=== PATIENT | female | born 1945 | race Caucasian/White ===

== ENCOUNTER → 2016-07-22 08:54 | Outpatient (CLI) | payer MEDICARE, BC | END | disposition home or self-care (01) | LOC: D.US 08:54 → D.RAD 10:00 | DX: K21.9 Gastro-esophageal reflux disease without esophagitis (principal); R07.89 Other chest pain ==

== ENCOUNTER 2017-01-27 06:26 | Day surgery (SDC) | payer MEDICARE, BC ==
[2017-01-27 07:27] LABS: HEMATOCRIT 37.7 % (36.0-48.0); HEMOGLOBIN 12.6 g/dL (12-16); MCH 30.8 pg (26.0-34.0); MCHC 33.4 g/dL (31.0-37.0); MCV 92.2 fL (80.0-100.0); MEAN PLATELET VOLUME 10.1 fL (7.4-10.4); RBC 4.09 10x6/uL (4.00-5.40); WBC 6.3 10x3/uL (4.8-10.8)
[2017-01-27 07:35] LABS: INR 0.96 (0.85-1.17); PROTIME 12.6 SECONDS (11.6-15.0)
[2017-01-27] MEDS ORDERED: OMEPRAZOLE40 MG PO (08:00)
[2017-01-27] MEDS ORDERED: ZANTAC300 MG PO (08:01)
[2017-01-27] MEDS ORDERED: MUCINEX600 MG PO (08:01)
[2017-01-27] MEDS ORDERED: SINGULAIR10 MG PO (08:01)
[2017-01-27] MEDS ORDERED: PAXIL40 MG PO (08:02)
[2017-01-27] MEDS ORDERED: BENADRYL25 MG PO (08:02)
[2017-01-27] MEDS ORDERED: ACETAMINOPHEN500 M1 PO (08:03)
[2017-01-27] MEDS ORDERED: MIRALAX17 GM PO (08:08)
[2017-01-27 08:13] VITALS: BP 129/75; BMI 28.2
--- NOTE | 2017-01-27 10:50 | NUR ---
COFFEE PROVIDED PER REQUEST.
--- NOTE | 2017-01-27 11:20 | NUR ---
PIV DC W/CATHETER TIP INTACT DC TEACHING COMPLETE PT VU FU AND NEW PT APPT MADE PER NANCE REQUEST.
--- NOTE | 2017-01-27 11:55 | NUR ---
PT DC HOME W\ DRIVING VIA WC BY VOLUNTEER.
--- NOTE | 2017-02-02 10:26 | OP ---
PATIENT NAME: MIRYAM MORALES MEDICAL RECORD: [id number] :49 LOCATION:D.[facility] ADMISSION DATE: SURGEON: RAUL NANCE MD DATE OF OPERATION: 01/27/2017 REFERRING PHYSICIAN: Dr. Colton Jaramillo of [place]. PRIMARY CARE PHYSICIAN: Dr. Colton Jaramillo of [place]. PREOPERATIVE DIAGNOSES: Atypical chest pain. The patient with known hiatus hernia and gastroesophageal reflux disease and upper abdominal pain. Also history of NSAID and aspirin abuse or use. POSTOPERATIVE DIAGNOSIS: Atypical chest pain. The patient with known hiatus hernia and gastroesophageal reflux disease and upper abdominal pain. Also history of NSAID and aspirin abuse or use. Atrophic gastritis, possibly also secondary to NSAIDs and aspirin and noncompliance with medical regime. OPERATION PERFORMED: Esophagogastroduodenoscopy with multiple gastric mucosal biopsies. SURGEON: Raul Nance MD ANESTHESIA: CIRCUS HAND, TIVA. PREOPERATIVE NOTE: Ms. Morales is a 71-year-old anxious white female patient, who has symptoms of atypical chest pain over the last 3 months and has a known hiatal hernia with reflux seen on upper GI. She was in my office last week complaining of terrible pain and wanting to have surgery for her hiatal hernia, however, at that time she was taking ibuprofen or other NSAIDs and aspirin relatively frequently and not taking her prescribed acid reducing medications in an optimal manner. At that time, in the office, I advised her to totally abstain from aspirin and NSAIDs and take only Tylenol if necessary for pain and to take Prilosec 40 mg twice a day morning and evening and Zantac 300 mg once a day at bedtime. Today, she presents for a scheduled upper endoscopy. She reports that her symptoms may be somewhat improved since abstaining from NSAIDs. Under TIVA administered per CIRCUS HAND and after the pharynx was sprayed with benzocaine, the Olympus gastroscope was introduced through the pharynx. The esophagus was normal in appearance until about 30 cm from the incisors. There was some tortuosity there of the distal esophagus and there was a hiatal hernia 8-10 cm in length of a sliding type. I saw no evidence of esophagitis. There was no esophageal stricture or mucosal ring, no esophageal ulcerations, etc. The scope was retroflexed and the hiatus hernia examined and photographed from below. Within the body and antrum of the stomach, there was erythema and erythematous streaking and erythema of the prepyloric mucosa consistent with atrophic gastritis and inflammation secondary to NSAIDs. The scope was passed through a somewhat spastic pylorus into the first, second, and third portions of the duodenum, which were normal in appearance. Scope was pulled back into the stomach and multiple biopsies of the gastric antral mucosa were obtained for CLOtest as well as histology. Insufflated air was suctioned away and the scope withdrawn. The patient will be discharged to home today. We will see if we can arrange an outpatient appointment in [place] to see Dr. Mills for cardiology evaluation for OPERATIVE REPORT [id number] MIRYAM MORALES her atypical chest pain, which certainly may be due to her GERD, but certainly could have other origins. She is to continue on Prilosec 40 mg b.i.d. and Zantac 300 mg p.o. at bedtime. She will continue to totally abstain from aspirin and NSAIDs and she is instructed to elevate the head of her bed 4 inches on wood blocks or bricks and to follow usual antireflux dietary precautions such as a low-fat diet and avoiding caffeine, coffee, chocolate, peppermint, and eating within a couple of hours of bedtime. I will plan to see her back in my office in 2 weeks. I hope to avoid surgical treatment for this patient, who is as I have said quite anxious. Hopefully, optimal medical management will control her symptoms. If not, at least physically she is a candidate for a laparoscopic Helio fundoplication. TRANSINT:[id number] Voice Confirmation ID: [id number] DOCUMENT ID: [id number] RAUL NANCE MD at 1026 CC: COLTON JARAMILLO [id number] DICTATION DATE: 01/27/17 1040 FINANCIAL SECRETARY: 01/27/17 1349 [facility] 01/27/17 [place] [id number] [place] [id number]
== END 2017-01-27 11:55 | disposition home or self-care (01) ==
LOC: D.OPS 06:26
PROVIDERS: Anesthesiology
DX: K21.9 Gastro-esophageal reflux disease without esophagitis (principal); K29.40 Chronic atrophic gastritis without bleeding; K44.9 Diaphragmatic hernia without obstruction or gangrene; R07.89 Other chest pain; G25.81 Restless legs syndrome; Z01.812 Encounter for preprocedural laboratory examination

== ENCOUNTER → 2018-07-03 08:05 | Outpatient (CLI) | payer MEDICARE, BC ==
[~2018-07-03 08:05] MED LIST: ACETAMINOPHEN500 M1 PO; BENADRYL25 MG PO; MIRALAX17 GM PO; MUCINEX600 MG PO; OMEPRAZOLE40 MG PO; PAXIL40 MG PO; SINGULAIR10 MG PO; ZANTAC300 MG PO
== END | disposition home or self-care (01) ==
LOC: D.OPS 07-02 09:00
PROVIDERS: ATTEND Surgery
DX: K21.9 Gastro-esophageal reflux disease without esophagitis (principal); Z01.812 Encounter for preprocedural laboratory examination

== ENCOUNTER 2018-07-12 09:18 | Observation (INO) | payer MEDICARE, BC ==
[2018-07-12] VITALS (14 sets, daily range): BP systolic 102–140; BP diastolic 50–93; Ht 348 cm; Wt 84.1 kg
[~2018-07-12] VITALS: Ht 348 cm; Wt 84.1 kg
[~2018-07-12 09:18] MED LIST changes: +FLUTICASONE PRO16 GM NASAL
[2018-07-12 10:11] LABS: HEMATOCRIT 40.2 % (36.0-48.0); HEMOGLOBIN 13.7 g/dL (12-16); LYMPHOCYTES 34.4 % (15-50); MCH 30.6 pg (26.0-34.0); MCHC 34.1 g/dL (31.0-37.0); MCV 89.9 fL (80.0-100.0); MEAN PLATELET VOLUME 9.8 fL (7.4-10.4); NEUTROPHILS 59.1 % (40-80); PLATELET COUNT 256 10x3/uL (130-400); RBC 4.47 10x6/uL (4.00-5.40); RDW 13.2 % (11.5-14.5); WBC 5.8 10x3/uL (4.8-10.8)
[2018-07-12 10:19] LABS: CALC OSMOLALITY 277 mosm/kg (275-300); CARBON DIOXIDE 24.8 mmol/L (21.0-32.0); CHLORIDE - SERUM 104 mmol/L (98-107); CREATININE - SERUM 0.8 mg/dL (0.6-1.3); GLUCOSE 100 mg/dL (74-106); POTASSIUM - SERUM 4.1 mmol/L (3.5-5.1); SODIUM 139 mmol/L (136-145); UREA NITROGEN 13 mg/dL (7-18); eGFR NON AFRICAN AMERICAN 75 mL/min (90-120)
--- NOTE | 2018-07-12 16:35 | NUR ---
PT ARRIVES TO ROOM VIA BED. FAMILY IS AT BEDSIDE, BUT MUST LEAVE AND WILL RETURN "SHORTLY". PT IS SLEEPY, BUT AROUSABLE WITH VERBAL STIMULATION FOR A SHORT MOMENT AND THEN RETURNS TO RESTING WITH EYES CLOSED. VSS. SEE POST OP VITALS. LAP SITES X 5 TO ABDOMEN WITH DRESSINGS THAT ARE C/D/I. SCDS ARE ON. BED IS IN THE LOWEST POSITION. CALL LIGHT AND BEDSIDE TABLE ARE WITHIN REACH. WILL CONT TO MONITOR.
--- NOTE | 2018-07-12 17:43 | NUR ---
CASING GRADER INITIATED. ETCO2 MONITOR IN PLACE. PT AND PT FAMILY MEMBER EDUCATED ON CASING GRADER AND MEDICATION. PT AND PT FAMILY DENIES FURTHER QUESTIONS AND/OR CONCERNS AT THIS TIME. BED IS IN THE LOWEST POSITION. CALL LIGHT AND BEDSIDE TABLE ARE WITHIN REACH. WILL CONT TO MONITOR.
--- NOTE | 2018-07-12 21:30 | NUR ---
SUPINE IN BED, AROUSES TO VERBAL STIMULATION. A&O X 4. REPORTS PAIN OF 7/10, PT CANNOT FIND DPCA BUTTON. ACQUIRED BUTTON AND REINFORCED HOW TO USE. INSTRUCTED PT TO TAKE DEEP BREATHS. PT REPORTS SHE HAS NOT YET VOIDED, NOR FEELS THE URGE YET. INFORMED PT SHE'LL NEED TO GET UP AND MOVING AND TRY TO VOID TONIGHT. PT STATED SHE USUALLY DOESN'T GO AT NIGHT AND PROBABLY WONT UNTIL MORNING. AT BEDSIDE. 5 LAP SITES TO ABDOMEN WITH BANDAIDS, NO BLEEDING ON BANDAGES NOTED. VITAL SIGNS STABLE. WILL CONTINUE TO MONITOR.
[2018-07-13] VITALS: BP 110/68
--- NOTE | 2018-07-13 00:18 | NUR ---
PT REMOVED FROM IV AND VS MONITOR. ASSISTED TO SITTING UP ON SIDE OF BED. PT AMBULATED TO BATHROOM, STANDBY ASSIST. PT VOIDED VERY LITTLE, STATES SHE WILL ATTEMPT AGAIN IN THE MORNING.
--- NOTE | 2018-07-13 01:37 | NUR ---
I have reviewed this patient and I concur with the Shift Assessment completed by the Licensed Practical Nurse today this shift.
[2018-07-13 04:00] VITALS: BP 104/66
[2018-07-13 05:02] LABS: BASOPHILS 0 % (0-2); EOSINOPHILS 0 % (0-7); HEMATOCRIT 38.1 % (36.0-48.0); HEMOGLOBIN 12.7 g/dL (12-16); LYMPHOCYTES 11.7 % (15-50); MCH 30.4 pg (26.0-34.0); MCHC 33.3 g/dL (31.0-37.0); MCV 91.1 fL (80.0-100.0); MONOCYTES 3.4 % (2-11); NEUTROPHILS 84.9 % (40-80); PLATELET COUNT 257 10x3/uL (130-400); RBC 4.18 10x6/uL (4.00-5.40); RDW 13.7 % (11.5-14.5)
[2018-07-13 05:10] LABS: WBC 8.1 10x3/uL (4.8-10.8)
[2018-07-13 05:37] LABS: CALC OSMOLALITY 274 mosm/kg (275-300); CALCIUM 8.2 mg/dL (8.5-10.1); CARBON DIOXIDE 24.5 mmol/L (21.0-32.0); CHLORIDE - SERUM 103 mmol/L (98-107); CREATININE - SERUM 0.7 mg/dL (0.6-1.3); GLUCOSE 143 mg/dL (74-106); POTASSIUM - SERUM 4.5 mmol/L (3.5-5.1); SODIUM 137 mmol/L (136-145); UREA NITROGEN 11 mg/dL (7-18); eGFR NON AFRICAN AMERICAN 88 mL/min (90-120)
--- NOTE | 2018-07-13 08:24 | NUR ---
ASSISTED TO RESTROOM, AWAKE AND ALERT, ON CO2 MONITORING FOR LOW RESPIRATIONS AND GRIDDLE ATTENDANT INFUSING, IV TO LEFT HAND, INFUSING FLUIDS AND DILUADID GRIDDLE ATTENDANT, DENIES ANY CURRENT NEEDS OR DISCOMFORTS, BED LOWERED AND LOCKED, CALL LIGHT WITHIN REACH. CPOC
[2018-07-13 09:35] VITALS: BP 114/65
[2018-07-13] MEDS ORDERED: REGLAN10 MG PO (09:42)
[2018-07-13] MEDS ORDERED: HYDROCODON-ACE1 EA10 PO (09:42)
--- NOTE | 2018-07-13 10:20 | NUR ---
DISCHARGE INSTRUCTIONS GIVEN, VERBALIZES UNDERSTANDING, DENIES ANY CONCERNS OR QUESTIONS AT CURRENT TIME. ACKNOWLEDGES FOLLOW UP APPOINTMENT WITH DR. CAMACHO AND ACCEPTED HARD SCRIPT FOR PAIN MEDICATION. DISCONTINUED IV TO LEFT HAND, APPLIED PRESSURE TO SITE, APPLIED GAUZE X2 WITH TAPE, AND INSTRUCTED PT TO APPLY PRESSURE WELL. TRANSPORTED OFF UNIT VIA WHEELCHAIR BY STAFF.
--- NOTE | 2018-07-13 11:12 | OP ---
PATIENT NAME: MIRYAM JOHNSON MEDICAL RECORD: [id number] :49 LOCATION:D[id number] ADMISSION DATE:07/12/18 SURGEON: ONUR CAMACHO MD DATE OF OPERATION: 07/12/2018 PREOPERATIVE DIAGNOSES: 1. Paraesophageal hernia. 2. Gastroesophageal reflux disease. 3. Depression. POSTOPERATIVE DIAGNOSES: 1. Paraesophageal hernia. 2. Gastroesophageal reflux disease. 3. Depression. PROCEDURE: Laparoscopic paraesophageal hernia repair. SURGEON: Onur Camacho MD REPORT OF PROCEDURE: The patient's abdomen was prepped and draped in sterile fashion. A Veress needle was inserted in the left upper quadrant and the abdomen was insufflated. An 11-mm Visiport trocar was inserted in the midline just above the umbilicus. The Veress needle was visualized and there was no injury to bowel or surrounding structures, so this was removed. At this point, an 11-mm trocar was placed in the left lateral subcostal region, a 5-mm trocar was placed in the epigastrium, a 5-mm trocar was placed in the right lateral subcostal region, and a final 5-mm trocar was placed in left lateral abdomen. The patient had approximately 50% of the stomach projecting up into the thoracic cavity. With tension, we could pull this out of the chest, but it would immediately fall back in. We began our dissection on the lesser curvature of the stomach taking down the lesser omentum using Harmonic scalpel. We continued this dissection up to the right side of the right carmel. We scored the peritoneum and took down the hernia sac that was projecting up in the patient's thoracic cavity. We did this as far anteriorly and posteriorly as possible. We then came to the greater curvature of the stomach and took down the short gastrics using Harmonic scalpel. This was taken down from the upper third of the stomach up to the left side of the right carmel. We then scored the peritoneum and again took down the hernia sac from the thoracic cavity. At this point, we had a 360-degree inspection of the patient's esophagus and the distal 2-3 cm of the esophagus and the remainder of the stomach would rest easily in the abdominal cavity without any tension. The vagus nerves were visualized and they were not injured. There was a fat pad that was present on the anterior aspect of the GE junction and this was taken down using Harmonic scalpel. We then reapproximated the esophageal hiatus using interrupted 0 Polydeks times 3. The fundus of the stomach was then pulled around in a 360-degree posterior fashion for a Helio fundoplication. This was sutured into place with 0 Ti-Cron times 3 with the top and the bottom suture incorporating a bite of the esophagus. This appeared to be in good position and did not appear to be too tight. We then inspected the area and made sure there was no sign of any bleeding. We irrigated out the right upper quadrant. We then removed the liver retractor, which was used to elevate the left lobe of the liver. A James-Joshua was used to close the 11-mm trocar site fascias using 0 Vicryls. At this point, the ports and insufflation were then removed. The wounds were infused with a total of 10 mL of 0.25% Marcaine with epinephrine and then closed with subcutaneous 5-0 Monocryl. OPERATIVE REPORT [id number] MIRYAM JOHNSON COMPLICATIONS: None. CONDITION: Stable. ANESTHESIA: General endotracheal and local. BLOOD LOSS: Minimal. TRANSINT:[id number] Voice Confirmation ID: [id number] DOCUMENT ID: [id number] ONUR CAMACHO MD at 1112 CC: JAVY DYER [id number] DICTATION DATE: 07/12/18 1538 CUSTOM WOOD STAIR BUILDER: 07/13/18 0003 DIS IN 07/13/18 [facility] [address] [place] [address]
--- NOTE | 2018-07-13 14:09 | MORECARE ---
CASE MANAGEMENT DISCHARGE SUMMARY PATIENT: MIRYAM JOHNSON UNIT: [id number] ADM DATE: 07/12/18 AGE: 72 : [birth year] SEX: F ROOM/BED: [id number].2236 AUTHOR: HARLEY BUSCH PHYSICIAN: REFERRING PHYSICIAN: STEPHANY CAMACHO MD DATE OF SERVICE: 07/13/18 Discharge Plan Patient Name: [facility]IRYAM JOHNSON [facility] [facility] 1945 Planned Disposition: Anticipated Discharge Date: Discharge Date: 07/13/2018 Expected LOS: 0 Initial Reviewer: [email or web address] Initial Review Date: 07/12/2018 Generated: 07/13/18 3:09 pm Patient Name: MIRYAM JOHNSON Page [id number] at 1409 All edits/amendments must be made on the electronic document DICTATION DATE: 07/13/18 1407 SERVICE TEAM LEADER: [place] 07/13/18 1409 RPT#: [id number] DC DATE:07/13/18 STATUS: DIS IN [facility] [address] [place] [address] END OF REPORT
== END 2018-07-13 10:20 | disposition home or self-care (01) ==
LOC: D.OPS 09:18 → D.MS 15:55 → OBSVTIME 15:58 → D.MS 07-13 10:20
PROVIDERS: ADMIT Surgery; ATTEND Surgery
DX: K44.9 Diaphragmatic hernia without obstruction or gangrene (principal); K21.9 Gastro-esophageal reflux disease without esophagitis; F32.9 Major depressive disorder, single episode, unspecified

== ENCOUNTER 2018-11-02 06:09 | Day surgery (SDC) | payer MEDICARE, BC ==
[~2018-11-02] VITALS: Ht 170.2 cm; Wt 77.3 kg
--- NOTE | ~2018-11-02 | OP ---
PATIENT NAME: MIRYAM JOHNSON MEDICAL RECORD: [id number] :49 LOCATION:D.[facility] ADMISSION DATE: SURGEON: ONUR CAMACHO MD DATE OF OPERATION: 11/02/2018 PREOPERATIVE DIAGNOSES: 1. Intractable nausea and vomiting. 2. History of a laparoscopic Helio. 3. Dysphagia. POSTOPERATIVE DIAGNOSES: 1. Intractable nausea and vomiting. 2. History of a laparoscopic Helio. 3. Dysphagia. PROCEDURE: EGD. SURGEON: Onur Camacho MD REPORT OF PROCEDURE: An Olympus endoscope was advanced through the patient's mouth and esophagus. We easily passed through the GE junction where there was noted to be findings consistent with a previous Helio fundoplication. There was no sign of a hiatal hernia present. As we entered the stomach, there was a large fluid bolus consistent with a bezoar present in the stomach. This appeared to be related to food. We were able to pass through this, into the pylorus, which appeared to be open and patent into the small bowel. We went as far as we could in the small bowel, which incorporated the third portion of the duodenum. There were no masses, lesions, ulcerations or signs of obstruction present. As we pulled back, we tried to do a manipulation of the food bolus to try and get it through the pylorus. We used graspers and nets to push some of the substance through there. We eventually just irrigated out this food bolus and broke it up until it was more of a floating soup type material. We still continued to try and push some of the larger chunks through the pylorus. Eventually, we just left this floating material present in the fluid to see if it would pass on its own. The patient had peristaltic contractions of the stomach that were noted. The scope was then removed. COMPLICATIONS: None. CONDITION: Stable. ANESTHESIA: TIVA. BLOOD LOSS: None. TRANSINT:[id number] Voice Confirmation ID: [id number] DOCUMENT ID: [id number] OPERATIVE REPORT [id number] SUSHILMANNY HoyosONUR SMITH MD CC: [id number] DICTATION DATE: 11/02/18 1157 VP PATIENT: 11/02/18 1210 [facility] [address] [place] [address]
[~2018-11-02 06:09] MED LIST changes: +HYDROCODON-ACE1 EA10 PO; +REGLAN10 MG PO
[2018-11-02 08:54] LABS: BASOPHILS 0.4 % (0-2); EOSINOPHILS 1.9 % (0-7); HEMATOCRIT 39.4 % (36.0-48.0); HEMOGLOBIN 13.3 g/dL (12-16); IMMATURE GRANULOCYTES 0.1 % (0-5); LYMPHOCYTES 27.7 % (15-50); MCHC 33.8 g/dL (31.0-37.0); MCV 88.9 fL (80.0-100.0); MEAN PLATELET VOLUME 10.5 fL (7.4-10.4); MONOCYTES 5.5 % (2-11); NEUTROPHILS 64.4 % (40-80); PLATELET COUNT 233 10x3/uL (130-400); RBC 4.43 10x6/uL (4.00-5.40); RDW 12.9 % (11.5-14.5); WBC 7.5 10x3/uL (4.8-10.8)
[2018-11-02 08:59] VITALS: BP 135/79; Ht 170.2 cm; Wt 77.3 kg
[2018-11-02 09:00] LABS: CALC OSMOLALITY 279 mosm/kg (275-300); CARBON DIOXIDE 28.9 mmol/L (21.0-32.0); CHLORIDE - SERUM 105 mmol/L (98-107); CREATININE - SERUM 0.7 mg/dL (0.6-1.3); GLUCOSE 92 mg/dL (74-106); POTASSIUM - SERUM 3.5 mmol/L (3.5-5.1); SODIUM 141 mmol/L (136-145); UREA NITROGEN 9 mg/dL (7-18); eGFR NON AFRICAN AMERICAN 87 mL/min (90-120)
[2018-11-02] MEDS ORDERED: REGLAN10 MG PO (11:50)
--- NOTE | 2018-11-02 13:05 | NUR ---
LEFT WRIST PIV DC'D WITH TIP INTACT, PATIENT DRESSING IN PERSONAL CLOTHING
--- NOTE | 2018-11-02 13:16 | NUR ---
DISCHARGE INSTRUCTIONS REVIEWED WITH PATIENT AND DAUGHTER. DISCHARGED HOME VIA WHEELCHAIR TO PRIVATE VEHICLE WITH DAUGHTER
== END 2018-11-02 13:16 | disposition home or self-care (01) ==
LOC: D.OPS 06:09
PROVIDERS: Anesthesiology; ATTEND Surgery
DX: R11.2 Nausea with vomiting, unspecified (principal); R13.10 Dysphagia, unspecified; K31.89 Other diseases of stomach and duodenum

== ENCOUNTER → 2019-01-07 08:23 | Outpatient (CLI) | payer MEDICARE, BC ==
[2018-11-02 08:59] VITALS: BMI 26.7
== END | disposition home or self-care (01) ==
LOC: D.MRI 08:23
PROVIDERS: ATTEND Nurse Practitioner Family
DX: R16.0 Hepatomegaly, not elsewhere classified (principal)